=== PATIENT | female | born 1985 | race Caucasian/White ===

== ENCOUNTER 2023-06-18 19:02 | Emergency (ER) | payer SELFPAY ==
[2023-06-18 19:11] VITALS: BP 136/88; PULSE 80; RESP 18; TEMP 98.8; BMI 30.9
[2023-06-18] MEDS ORDERED: ACETAMINOPHEN INJECTION 100 ML IVPB ONE (20:02)
[2023-06-18] MEDS ORDERED: MAG HYDROX/AL HYDROX/SIMETH 30 ML UNIT-DOSE CUP ONE (20:02)
[2023-06-18] MEDS ORDERED: FAMOTIDINE 10 MG/ML VIAL IVPB ONE (20:03)
[2023-06-18] MEDS: ACETAMINOPHEN 1000 MG/100 ML BAG IVPB ONE (20:33)
[2023-06-18] MEDS: FAMOTIDINE 20 MG/50 ML IVPB 20 MG/50 ML MG IVPB ONE (20:34)
[2023-06-18] MEDS: SODIUM CHLORIDE 0.9% 500 ML INFUS.BAG IV ONE (20:34)
[2023-06-18 20:42] LABS: BASO % 0.3 % (0-2.0); EOS % 4.5 % (0-4.5); HEMATOCRIT 28.5 % (32.4-45.2); HEMOGLOBIN 8.9 GM/dL (10.7-15.3); LYMPH % 21.3 % (8-40); MCHC 31.1 g/dl (32.0-36.0); MEAN CELL VOLUME 58.2 fl (80-96); MEAN PLT VOLUME 10.5 fl (7.5-11.1); MONO % 11.5 % (3.8-10.2); NEUT % 62.4 % (42.8-82.8); PLATELET COUNT 37 10^3/uL (134-434); RDW 18.5 % (11.6-15.6); WHITE BLOOD COUNT 10.2 K/mm3 (4.0-10.0)
[2023-06-18 21:02] LABS: POTASSIUM 3.4 mmol/L (3.5-5.1)
[2023-06-18 21:04] LABS: ALBUMIN 3.1 g/dl (3.4-5.0); BLOOD UREA NITROGEN 9.2 mg/dL (7-18); CALCIUM 7.6 mg/dL (8.5-10.1)
[2023-06-18 21:07] LABS: CREATININE 0.5 mg/dL (0.55-1.3)
[2023-06-18 21:08] LABS: MCH 18.1 pg (25.7-33.7)
[2023-06-18 21:09] LABS: BILIRUBIN,TOTAL 0.1 mg/dL (0.2-1); TOT PROT 7.8 g/dl (6.4-8.2)
[2023-06-18 21:25] LABS: ANISOCYTOSIS 3+; MACROCYTOSIS 0; OVALOCYTE 1+; TEAR DROP CELLS 1+
[2023-06-18] MEDS: MAG HYDROX/AL HYDROX/SIMETH -MYLANTA- ORAL SUSPENSION PO ONE (21:25)
== END 2023-06-18 22:10 | disposition home or self-care (01) ==
LOC: JER 19:02
PROC: 3E033GC Introduction of Other Therapeutic Substance into Peripheral Vein, Percutaneous Approach (ICD-10-PCS; principal; 2023-06-18)
PROC: 3E030NZ Introduction of Analgesics, Hypnotics, Sedatives into Peripheral Vein, Open Approach (ICD-10-PCS; 2023-06-18)
DX: R10.12 Left upper quadrant pain (principal)
CPT/HCPCS: 36415; 71046-TC-FY; 80053; 83690; 84703; 85025; 99284-25; J0131